=== PATIENT | male | born 1995 | race Caucasian/White ===

== ENCOUNTER 2016-08-31 06:42 | Day surgery (SDC) | payer MEDICAID, OTHER ==
[~2016-08-31] VITALS: Ht 154.9 cm; Wt 69.7 kg
[~2016-08-31 06:42] MED LIST: LEVA1.2523; MOTRIN; PCN; TYLENOL
[2016-08-31 07:18] VITALS: Ht 154.9 cm; Wt 69.7 kg
[2016-08-31 07:50] VITALS: BP 107/59; PULSE 58; RESP 16
[2016-08-31 08:59] VITALS: BP 91/53; RESP 20
[2016-09-01] MEDS ORDERED: PROPOFOL 60 ML ONE (18:01)
[2016-09-01] MEDS ORDERED: LIDOCAINE 2% (SDV) 5 ML INJ ONE (18:01)
--- NOTE | 2016-09-03 07:14 | GILP ---
DATE OF PROCEDURE: 08/31/2016 PROCEDURE: Esophagogastroduodenoscopy and biopsy. SURGEON: Hugo Kennedy MD. PREOP DIAGNOSIS: Abdominal pain, nausea, and vomiting. POSTOPERATIVE DIAGNOSES: 1. Gastritis with erosions. 2. Gastric mucosal biopsies were taken for Helicobacter pylori. 3. Prominent fold at the esophagogastric junction, and biopsies were taken for histopathology. INDICATION: Mr. Harrison Ceron is a 21-year-old male patient who was having upper abdominal pain associated with nausea and vomiting. The patient was scheduled for endoscopy. Consent was obtained from the patient for further evaluation. The procedure and possible complications were well explained to the patient's family, and consent was obtained. DESCRIPTION OF PROCEDURE: Under the influence of anesthesia, the gastroscope was carefully introduced into the esophagus. Under direct vision, it was advanced to the stomach, into descending duodenum. Findings of the esophagus: The patient had prominent fold at the esophagogastric junction. Biopsies were taken for histopathology. Stomach: The patient had gastritis with erosions. Gastric mucosal biopsies were taken for Helicobacter pylori test. Duodenum was normal. He tolerated the procedure very well. There were no complications from the procedure. At the end of procedure, he was awake with stable vital signs. He was discharged in the care of his family. IMPRESSION: 1. Prominent fold at the esophagogastric junction. Biopsies were taken for histopathology. Gastritis with erosions. 2. Gastric mucosal biopsies were taken for Helicobacter pylori test. PLAN: 1. Omeprazole 40 mg p.o. q.a.m. 2. Await histopathology reports. Dictated By: MD ALMAS Gomez/radha/abilio /Document#: [id number]
== END 2016-08-31 10:51 | disposition home or self-care (01) ==
LOC: GIL 06:42
PROVIDERS: ATTEND Internal Medicine Gastroenterology
DX: K29.50 Unspecified chronic gastritis without bleeding (principal); E66.9 Obesity, unspecified; Z68.29 Body mass index [BMI] 29.0-29.9, adult
CPT/HCPCS: 43239; 87081; 88305; 88312; 88313; Z7610

== ENCOUNTER 2017-11-07 09:53 | Day surgery (SDC) | END 2017-11-07 12:23 | disposition home or self-care (01) ==